=== PATIENT | male | born 1985 | race Caucasian/White ===

== ENCOUNTER → 2018-05-10 07:47 | Outpatient (CLI) | payer OTHER, SELFPAY ==
[2018-05-10 09:31] LABS: BUN Creatinine Ratio 14.4 (6-22); Blood Urea Nitrogen 13 mg/dL (9-20); Calcium 9.6 mg/dL (8.4-10.2); Carbon Dioxide 26 mmol/L (22-32); Chloride 104 mmol/L (98-107); Cholesterol 147 mg/dL (140-199); Estimated Glomerular Filt Rate > 60.0 mL/min (>60); Glucose 88 mg/dL (70-100); HDL Cholesterol 43 mg/dL (40-60); HEMOLYSIS < 15 (0-50); LDL Cholesterol Calculated 91 mg/dL (<100); Potassium 4.4 mmol/L (3.4-5.1); Sodium 141 mmol/L (137-145); Triglycerides 65 mg/dL (35-150)
[2018-05-10 09:47] LABS: Vitamin D 25 Hydroxy (D3) 29.6 ng/mL (30.0-100.0)
== END ==
PROVIDERS: Visit Provider Student in an Organized Health Care Education/Training Program
DX: E55.9 Vitamin D deficiency, unspecified (principal); E66.9 Obesity, unspecified; Z13.220 Encounter for screening for lipoid disorders; Z83.3 Family history of diabetes mellitus
CPT/HCPCS: 36415; 80048; 80061; 82306

== ENCOUNTER → 2020-01-30 14:00 | Outpatient (CLI) | payer OTHER, SELFPAY | PROVIDERS: PCP Student in an Organized Health Care Education/Training Program; Visit Provider Registered Nurse | DX: L02.91 Cutaneous abscess, unspecified (principal) | CPT/HCPCS: 87070; 87075; 87077; 87147; 87186; 87205 ==

== ENCOUNTER → 2020-11-20 07:58 | Outpatient (CLI) | payer OTHER, SELFPAY ==
[2020-11-20 08:40] LABS: COVID19 -Nasal RAPID Negative (Negative)
== END ==
PROVIDERS: PCP Student in an Organized Health Care Education/Training Program; Visit Provider Physician Assistant
DX: Z20.822 Contact with and (suspected) exposure to COVID-19 (principal)
CPT/HCPCS: 87635

== ENCOUNTER → 2021-11-18 12:49 | Outpatient (CLI) | payer OTHER, SELFPAY ==
--- NOTE | 2021-11-18 | DI.RAD.S_ITS ---
PROCEDURE: XR CERVICAL SPINE 2V OR 3V INDICATIONS: Cervicalgia TECHNIQUE: Three views of the cervical spine were acquired. COMPARISON: None. FINDINGS: Bones: No acute fractures or dislocations to the C7 level. The lateral masses of C1 appear intact on the odontoid view. No suspicious bony lesions. Mild disc space narrowing and degenerative endplate changes. Mild facet hypertrophy. Soft tissues: No prevertebral soft tissue swelling. IMPRESSION: No acute osseous abnormality. Mild spondylosis. Consider cervical spine MRI for further evaluation if indicated clinically. Dictated by: Larry Bedoya M.D. on 11/18/2021 at 13:42 Approved by: Larry Bedoya M.D. on 11/18/2021 at 13:44
== END ==
PROVIDERS: PCP Student in an Organized Health Care Education/Training Program; Referring Provider Chiropractor; Visit Provider Chiropractor
DX: M99.11 Subluxation complex (vertebral) of cervical region (principal); M54.2 Cervicalgia; M47.812 Spondylosis without myelopathy or radiculopathy, cervical region
CPT/HCPCS: 72040

== ENCOUNTER → 2024-03-19 15:17 | Outpatient (CLI) | payer OTHER, SELFPAY ==
[2024-03-19 16:49] LABS: COVID-19 CEPHEID 4-PLEX PCR Negative (Negative); Influenza A - CEPHEID Flu A POSITIVE (NEGATIVE); Influenza B - CEPHEID Flu B NEGATIVE (NEGATIVE); Respiratory Syncytial Virus Negative (Negative)
== END ==
PROVIDERS: PCP Student in an Organized Health Care Education/Training Program; Referring Provider Physician Assistant; Visit Provider Physician Assistant
DX: R05.1 Acute cough (principal); J02.9 Acute pharyngitis, unspecified
CPT/HCPCS: 0241U; 87070

== ENCOUNTER → 2024-08-26 08:58 | Outpatient (CLI) | payer OTHER, SELFPAY ==
[2024-08-26 09:51] LABS: Add Manual Diff / Slide Review NO; Basophils Absolute Auto 100 /uL (0-100); Basophils Percent Auto 0.5 % (0-2); Eosinophils Absolute Auto 100 /uL (0-450); Eosinophils Percent Auto 1.2 % (2-4); Hematocrit 44.5 % (41-53); Hemoglobin 15.4 g/dL (13.5-17.5); Lymphocytes Absolute Auto 3200 /uL (1100-4500); Lymphocytes Percent Auto 29.7 % (25-40); Mean Corpuscular HGB Conc 34.7 % (30-36); Mean Corpuscular Hemoglobin 30.4 PG (26-34); Mean Corpuscular Volume 87.4 fL (80-100); Monocytes Absolute Auto 800 /uL (0-900); Monocytes Percent Auto 7.7 % (3-14); Neutrophils Absolute Auto 6500 /uL (1500-7000); Neutrophils Percent Auto 60.9 % (50-75); Platelet Count 243 X10^3/uL (150-400); Red Blood Cell Count 5.09 X10^6/uL (4.5-5.9); Red Cell Distribution Width 13.8 % (11.6-14.8); White Blood Cell Count 10.6 X10^3/uL (4.5-11.0)
[2024-08-26 10:17] LABS: Alanine Aminotransferase 57 IU/L (<50); Albumin 4.7 g/dL (3.5-5.0); Albumin Globulin Ratio 1.8 (1.0-2.8); Alkaline Phosphatase 85 U/L (38-126); Aspartate Aminotransferase 35 IU/L (17-59); BUN Creatinine Ratio 17.1 (6-22); Bilirubin Total 1.6 mg/dL (0.2-1.3); Blood Urea Nitrogen 14 mg/dL (9-20); Calcium 9.3 mg/dL (8.4-10.2); Carbon Dioxide 26 mmol/L (22-32); Chloride 105 mmol/L (98-107); Cholesterol 157 mg/dL (140-199); Estimated Glomerular Filt Rate > 60 mL/min (>60); Globulin 2.6 g/dL (1.7-4.1); Glucose 96 mg/dL (70-99); HDL Cholesterol 34 mg/dL (40-60); HEMOLYSIS 18 (0-50); LDL Cholesterol Calculated 106 mg/dL (<100); Potassium 5.1 mmol/L (3.4-5.1); Sodium 140 mmol/L (137-145); Total Protein 7.3 g/dL (6.3-8.2); Triglycerides 84 mg/dL (35-150)
[2024-08-26 10:48] LABS: TSH w/ Reflex to FT4 1.29 uIU/mL (0.47-4.68)
== END ==
PROVIDERS: PCP Family Medicine; Referring Provider Family Medicine; Visit Provider Family Medicine
DX: E66.9 Obesity, unspecified (principal); Z83.3 Family history of diabetes mellitus
CPT/HCPCS: 36415; 80053; 80061; 83036; 84443; 85025

== ENCOUNTER → 2024-09-22 11:41 | Outpatient (CLI) | payer OTHER, SELFPAY ==
[2024-09-22 12:35] LABS: Hematocrit 41.5 % (41-53); Hemoglobin 14.5 g/dL (13.5-17.5); Mean Corpuscular HGB Conc 34.9 % (30-36); Mean Corpuscular Hemoglobin 30.3 PG (26-34); Mean Corpuscular Volume 86.8 fL (80-100); Platelet Count 239 X10^3/uL (150-400)
[2024-09-22 12:49] LABS: Alanine Aminotransferase 43 IU/L (<50); Albumin 4.5 g/dL (3.5-5.0); Albumin Globulin Ratio 1.7 (1.0-2.8); Alkaline Phosphatase 84 U/L (38-126); Blood Urea Nitrogen 13 mg/dL (9-20); Calcium 9.1 mg/dL (8.4-10.2); Carbon Dioxide 25 mmol/L (22-32); Chloride 105 mmol/L (98-107); Estimated Glomerular Filt Rate > 60 mL/min (>60); Globulin 2.7 g/dL (1.7-4.1); Glucose 86 mg/dL (70-99); HEMOLYSIS < 15 (0-50); Potassium 4.3 mmol/L (3.4-5.1); Sodium 139 mmol/L (137-145); Total Protein 7.2 g/dL (6.3-8.2)
== END ==
PROVIDERS: PCP Family Medicine; Referring Provider Surgery; Visit Provider Surgery
DX: K42.9 Umbilical hernia without obstruction or gangrene (principal); K42.0 Umbilical hernia with obstruction, without gangrene
CPT/HCPCS: 36415; 80053; 85027

== ENCOUNTER → 2024-09-28 13:54 | Outpatient (CLI) | payer OTHER, SELFPAY ==
--- NOTE | 2024-09-28 14:12 | EKG_ITS ---
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
== END ==
LOC: RESP 13:55
PROVIDERS: PCP Family Medicine; Referring Provider Surgery; Visit Provider Surgery
DX: Z01.818 Encounter for other preprocedural examination (principal); E66.9 Obesity, unspecified; Z68.43 Body mass index [BMI] 50.0-59.9, adult; Z83.3 Family history of diabetes mellitus; Z71.3 Dietary counseling and surveillance
CPT/HCPCS: 93005; 97802

== ENCOUNTER → 2024-09-28 13:58 | Outpatient (CLI) | payer OTHER, SELFPAY ==
--- NOTE | 2024-09-28 16:56 | DIET.OUTPTC ---
Dietary Outpatient Consult Consult Date:09/28/24 Assessment:?39 y M referred to dietitian for obesity, BMI 50.0-59.9 and family hx of DM Presents with , Varsha. Wanting to improve nutrition and lose weight. Family hx of bariatric surgery, wants to lose weight w/o surgery and meds. Have 3 young kids. cooks dinner. Stopped drinking regular sodas 4-6 months ago, just 1 a day with dinner now. GI symptoms: Denies D/C/N/V, daily BMs Diet Recall: 10am- bagel brought to work noon-leftovers 6pm- standard homemade dinners (spag. w/ meatballs, tacos, casseroles), soda snacks while watching TV- chips or ice cream or nachos Fluids:2 cups black coffee, 40 oz water, 1 soda 08/27/2507:19 PCP office Height 6 ft 2 in Weight 420 lb 8 oz BMI 53.9 Activity:rowing 3 days/wk Pertinent Labs:LDL 106, HDL 34 Nutrition Diagnosis:? Excessive energy intake r/t large portion sizes aeb diet recall with post dinner snacks and a regular soda Interventions:? Discussed and provided appropriate resources on the following: -Balanced meals and snacks in line with myplate, Mediterranean style of eating -Portion sizing -Education on label reading -Assessing hunger/fullness level -Fiber, amounts, types -Physical activity -Lab values and correlation with nutrition Goals: -Use hunger/fullness scale at dinner to prevent feeling overfull after meal -Portion post dinner snack before leaving kitchen and pair post dinner snack with fiber/protein source -1/4 cup nuts/fruit/leftover veg -Add protein source with bagel - cheese/nut butter/egg -Continue activity EER:? 38 g fiber daily Monitoring/Evaluations:? F/u in 6 wks - pushed back d/t surgery Electronically Signed by: Yumiko Alvarez Clinical Dietitian [address] [id number]
== END ==
LOC: DIET 13:58
PROVIDERS: PCP Family Medicine; Referring Provider Family Medicine
DX: E66.9 Obesity, unspecified (principal); Z68.43 Body mass index [BMI] 50.0-59.9, adult; Z83.3 Family history of diabetes mellitus; Z71.3 Dietary counseling and surveillance
CPT/HCPCS: 97802